=== PATIENT | male | born 1980 | race Caucasian/White ===

== ENCOUNTER 2021-07-11 02:03 | Emergency (ER) | payer OTHER ==
[2021-07-11] MEDS ORDERED: TUCKS MEDICATE1 EACH TOP (03:59)
[2021-07-11] MEDS ORDERED: BENTYL10 MG PO (03:59)
[2021-07-11] MEDS ORDERED: ANUSOL-HC30 GM TOP (03:59)
[2021-07-11] MEDS ORDERED: MIRALAX 238GM238 GM PO (03:59)
== END 2021-07-11 04:23 | disposition home or self-care (01) ==
LOC: FER 02:03
DX: K59.00 Constipation, unspecified (principal); K62.89 Other specified diseases of anus and rectum
CPT/HCPCS: 74022; 82270; 93005

== ENCOUNTER 2022-03-31 21:36 | Emergency (ER) | payer OTHER ==
[~2022-03-31 21:36] MED LIST: ANUSOL-HC30 GM TOP; BENTYL10 MG PO; MIRALAX 238GM238 GM PO; TUCKS MEDICATE1 EACH TOP
[2022-03-31 22:15] LABS: BASOPHIL 0.3 % (0-2); EOSINOPHIL 0.4 % (0-5); HCT 48.5 % (42.0-52.0); HGB 16.4 g/dl (13.2-18.0); LYMPHOCYTE 24.2 % (15-48); MCH 30.4 pg (25.0-31.0); MCHC 33.8 g/dL (32.0-36.0); MCV 89.8 fL (78.0-100.0); MONOCYTE 6.3 % (0-12); MPV 9.1 fL (6.0-9.5); NEUTROPHIL 68.3 % (41-80); NRBC 0; PLT 383 K/uL (150-400); RDW 12.2 % (11.5-14.0)
[2022-03-31 22:36] LABS: ALBUMIN 3.9 g/dL (3.4-5.0); BILIRUBIN - TOTAL 0.3 mg/dL (0.2-1.0); BUN/CREAT RATIO (CALC) 12.9 RATIO; CREATININE 1.01 mg/dL (0.67-1.17); GLOBULIN (CALCULATION) 4.4 g/dL; POTASSIUM 3.9 mmol/L (3.5-5.1); TOTAL PROTEIN 8.3 g/dL (6.4-8.2)
[2022-03-31] MEDS ORDERED: NORCO 5-325 TA1 EACH PO (23:04)
[2022-03-31] MEDS ORDERED: FLOMAX0.4 MG PO (23:04)
[2022-03-31 23:52] LABS: BILIRUBIN NEGATIVE (NEGATIVE); BLOOD 2+ Ery/uL (NEGATIVE); CLARITY CLEAR (CLEAR); COLOR YELLOW (YELLOW); GLUCOSE (U) NORMAL (NORMAL); LEUKOCYTES NEGATIVE Leu/uL (NEGATIVE); NITRITE NEGATIVE (NEGATIVE); PROTEIN NEGATIVE (NEGATIVE); SPECIFIC GRAVITY 1.025 (1.001-1.030); UROBILINOGEN 0.2 mg/dL (0.2-1.0)
[2022-03-31 23:59] LABS: AMORPHOUS URATES CRYSTALS TRACE; BACTERIA TRACE
== END 2022-04-01 00:32 | disposition home or self-care (01) ==
LOC: FER 21:36
PROVIDERS: Internal Medicine
DX: N13.2 Hydronephrosis with renal and ureteral calculous obstruction (principal); Z87.442 Personal history of urinary calculi
CPT/HCPCS: 36415; 80053; 81001; 83690; 85025; J1170; J1885; J2405; J2550; J7030